=== PATIENT | female | born 1995 | race Caucasian/White ===

== ENCOUNTER 2017-07-29 03:43 | Emergency (ER) | payer OTHER, SELFPAY ==
[2017-07-29] MEDS ORDERED: MORPHINE 10 MG/ML SYRINGE ONE (04:26)
[2017-07-29] MEDS ORDERED: Ondansetron HCl/PF 4 MG/2 ML Vial ONE (04:26)
[2017-07-29 04:42] LABS: #Basophils 0.1 thou/uL (0.0-0.2); #Eosinphils 0.2 thou/uL (0.0-0.7); #Lymphocytes 1.1 thou/uL (1.20-3.40); #Monocytes 0.9 thou/uL (0.11-0.59); %Basophils 0.4 % (0.0-1.0); %Lymphocytes 7.3 % (21.0-51.0); %Monocytes 5.8 % (0.0-10.0); %Neutrophils 85.5 % (42.0-75.0); Mean Corpuscular HGB CONC 33.6 g/dL (32.0-36.0); Mean Corpuscular Hemoglobin 30.9 pg (27.0-31.0); Mean Corpuscular Volume 91.9 fl (81.0-99.0); Mean Platelet Volume 9.5 fL (7.4-10.4); Platelet Count 276 thou/uL (130-400); RBC Distribution Width 11.5 % (11.5-14.5); Red Blood Cell (RBC) Count 4.48 mill/uL (4.20-5.40); White Blood Cell (WBC) Count 15.2 thou/uL (4.8-10.8)
[2017-07-29 04:59] LABS: ALT (SGPT) 23 U/L (8-55); AST (SGOT) 36 U/L (5-34); Albumin 3.9 g/dL (3.5-5.0); Alkaline Phosphatase 122 U/L (40-150); Anion Gap 17 mmol/L (10-20); BUN (Urea Nitrogen) 16 mg/dL (7.0-18.7); Bilirubin, Total 0.4 mg/dL (0.2-1.2); Calc. Creatinine Clearance 0 mL/min (70-130); Calcium 9.2 mg/dL (7.8-10.44); Carbon Dioxide 22 mmol/L (22-29); Chloride 106 mmol/L (98-107); Estimated GFR-MDRD 76; Globulin 3.1 g/dL (2.4-3.5); Glucose 99 mg/dL (70-105); Lipase 39 U/L (8-78); Potassium 4.5 mmol/L (3.5-5.1); Sodium 140 mmol/L (136-145)
[2017-07-29 05:28] LABS: Bilirubin Negative (Negative); Blood, Urine Moderate (Negative); Glucose, Urine (Dipstick) Negative (Negative); Leukocyte Negative (Negative); Nitrite Negative (Negative); Pregnancy Test - Urine (BHCG) Negative (Negative); Pregu Control Background? CLEAR/WHITE (CLR/WHITE); Pregu Control Bar Appear? YES (CONTROL BAR); Protein, Urine (Dipstick) Negative (Neg-Trace); Urobilinogen 0.2 mg/dL (0.2-1.0); pH, Urine 5.5 (5.0-9.0)
[2017-07-29 05:29] LABS: Clarity Hazy (Clear)
[2017-07-29 05:32] LABS: Bacteria/HPF 2+ HPF (None Seen)
[2017-07-29] MEDS ORDERED: Sodium Chloride 0.9% 1,000 ML BAG ONE (07:14)
--- NOTE | 2017-07-29 08:36 | CT ---
PRELIMINARY REPORT/[facility]/EMERGENCY AFTER HOURS PROCEDURE: EXAM: CT Abdomen and Pelvis With Intravenous Contrast EXAM DATE/TIME: 07/29/2017 6:07 AM CLINICAL HISTORY: 22 years old, female; Pain; Abdominal pain; Generalized TECHNIQUE: Axial computed tomography images of the abdomen and pelvis with intravenous contrast. Coronal reformatted images were created and reviewed. CONTRAST: 90 mL of ISOVUE 370 administered intravenously. COMPARISON: No relevant prior studies available. FINDINGS: Lower thorax: No acute findings. ABDOMEN: Liver: No mass. Gallbladder and bile ducts: No calcified stones. Pancreas: No acute findings. Spleen: No acute findings. Adrenals: No acute findings. Kidneys and ureters: No hydronephrosis. Stomach and bowel: No evidence for small bowel obstruction. Moderate stool Appendix: Normal appendix PELVIS: Bladder: No acute abnormality. Reproductive: 2.2 x 1.8 cm follicular cyst in the right ovary. No free fluid ABDOMEN and PELVIS: Intraperitoneal space: No free air. Bones/joints: No acute fracture. No dislocation. Soft tissues: No acute findings. Vasculature: No acute findings. No abdominal aortic aneurysm. Lymph nodes: No significant adenopathy. IMPRESSION: 1: No inflammatory process identified 2: Normal appendix 3: 2.2 x 1.8 cm follicular cyst in the right ovary. No free fluid 4: Moderate stool Thank you for allowing us to participate in the care of your patient. Dictated and Authenticated by: Clinton Gaona MD 07/29/2017 7:26 AM Central Time ([place] & [place]) FINAL REPORT ABDOMEN AND PELVIC CT SCAN WITH IV CONTRAST: EMERGENCY AFTER HOURS STUDY TIME: 6:10 a.m. DATE: 07/29/17. FINDINGS/IMPRESSION: Small follicle cyst right ovary. Moderate stool throughout the colon. No renal calculus or obstr uction. Normal-appearing appendix. No other acute process. Little change range of motion 05/06/16 p rior study. POS: [facility]
[2017-07-29] MEDS ORDERED: Iopamidol 370 76% 100 ML VIAL ONE (10:04)
== END 2017-07-29 08:15 | disposition home or self-care (01) ==
LOC: MADERS 03:43
DX: K59.00 Constipation, unspecified (principal); K21.9 Gastro-esophageal reflux disease without esophagitis; J45.909 Unspecified asthma, uncomplicated; Z79.899 Other long term (current) drug therapy
CPT/HCPCS: 74177; 80053; 81003; 81015; 81025; 83690; 85025; 96361; 96374; 96375; J2270; J2405; J7050

== ENCOUNTER 2017-09-16 14:28 | Emergency (ER) | payer OTHER ==
[2017-09-16] MEDS ORDERED: Naproxen 500 MG TAB ONE (15:45)
[2017-09-16] MEDS ORDERED: HYDROcodone/Acetaminophen 10/325 mg Tablet ONE (15:45)
--- NOTE | 2017-09-16 15:58 | RAD ---
LEFT HIP 2 VIEWS: Date: 09/16/17 HISTORY: 22-year-old female with history of left hip pain following a fall. FINDINGS/IMPRESSION: No fracture, dislocation, or other significant acute process. POS: [facility]
--- NOTE | 2017-09-16 16:10 | RAD ---
LEFT KNEE FOUR VIEWS: 09/16/17 HISTORY: 22-year-old female with history of knee pain following a fall. FINDINGS/IMPRESSION: No fracture, dislocation, or other significant acute osseous abnormality. POS: [facility]
== END 2017-09-16 15:12 | disposition home or self-care (01) ==
LOC: MADERS 14:28
DX: S70.02XA Contusion of left hip, initial encounter (principal); S80.02XA Contusion of left knee, initial encounter; K21.9 Gastro-esophageal reflux disease without esophagitis; J45.909 Unspecified asthma, uncomplicated; W19.XXXA Unspecified fall, initial encounter

== ENCOUNTER 2022-02-06 09:07 | Emergency (ER) | payer OTHER, SELFPAY ==
[2022-02-06] MEDS ORDERED: Meclizine HCl 25 MG TAB ONE (09:58)
== END 2022-02-06 10:45 | disposition home or self-care (01) ==
LOC: MADERS 09:07
DX: H81.11 Benign paroxysmal vertigo, right ear (principal); K21.9 Gastro-esophageal reflux disease without esophagitis; E66.9 Obesity, unspecified; Z68.45 Body mass index [BMI] 70 or greater, adult
CPT/HCPCS: 99283